=== PATIENT | female | born 1980 | race Asian ===

== ENCOUNTER 2018-05-09 08:32 | Emergency (ER) | payer BC ==
[~2018-05-09] VITALS: Ht 167.6 cm; Wt 61.2 kg
--- NOTE | 2018-05-09 08:32 | NUR ---
BIB SELF W C/O HEMATURIA, DYSURIA AND URINARY FREQUENCY SINCE YESTERDAY. TO ER BED 1, HOOKED TO MONITOR, DR GREEN AT BEDSIDE
[2018-05-09] MEDS ORDERED: CEPHALEXIN MONOHYDRATE 500 MG CAPSULE PO ONE ×2 (09:04→09:30)
--- NOTE | 2018-05-09 09:07 | NUR ---
RECEIVED VERBAL ORDER FROM DR GREEN OF KEFLEX 500MG PO.
[2018-05-09 09:13] VITALS: BP 127/65
--- NOTE | 2018-05-09 09:13 | NUR ---
Patient discharged to home in stable condition. Written and verbal after care instructions given. Patient verbalizes understanding of instruction.
[2018-05-09 09:17] LABS: APPEARANCE,URINE Slightly Cloudy (CLEAR); BILIRUBIN,URINE Negative (NEGATIVE); BLOOD, URINE Large Ery/uL (NEGATIVE); COLOR,URINE Yellow (YELLOW); KETONES,URINE Negative (NEGATIVE); LEUKOCYTE ESTERASE ,URINE Large (NEGATIVE); NITRITE, URINE Positive (NEGATIVE); PH,URINE 5.5 (5.0-8.0); PROTEIN,URINE 100 mg/dl (NEGATIVE); UGLUCOSE Negative (NEGATIVE); UROBILINOGEN,URINE 0.2 EU/dL (0.2)
[2018-05-09 09:39] LABS: BACTERIA,URINE Moderate /HPF (None Seen); RBC,URINE 51-80 /HPF (0-2); SQUAMOUS EPITHELIAL CELL,UR Few /HPF (None Seen)
== END 2018-05-09 09:14 | disposition home or self-care (01) ==
LOC: ER 08:38
DX: N39.0 Urinary tract infection, site not specified (principal)
CPT/HCPCS: 81001; 84703; 87086; 87186; 99283; A4606; 81000-TC